=== PATIENT | male | born 1980 | race Caucasian/White ===

== ENCOUNTER 2020-02-08 12:17 | Outpatient (REF) | payer BC, SELFPAY ==
[2020-02-08 13:05] LABS: Hematocrit 48.8 % (42-52); Mean Corpuscular HGB Conc 32.8 g/dl (31.0-36.0); Mean Corpuscular Hemoglobin 28.3 pg (27.0-33.0); Mean Corpuscular Volume 86.2 fL (80-98); Mean Platelet Volume 9.8 fL (9.4-12.4); Platelet Count 278 X10*3/uL (160-400); Red Blood Count 5.66 X10*6/uL (4.60-5.80); Red Cell Distribution Width 12.7 % (11.0-16.0); White Blood Count 6.1 X10*3/uL (4.8-10.8)
[2020-02-08 13:16] LABS: Estimated Average Glucose 209 mg/dL; Hemoglobin A1c % 8.9 %
[2020-02-08 13:48] LABS: Alanine Aminotransferase 41 U/L (0-40); Albumin Level 4.5 g/dL (3.5-5.0); Alkaline Phosphatase 75 U/L (39-117); Anion Gap 14 (12-20); Aspartate Amino Transferase 19 U/L (5-37); Bilirubin Direct 0.2 mg/dL (0.0-0.5); Bilirubin Total 0.4 mg/dL (0.0-1.0); Blood Urea Nitrogen 10 mg/dL (9-16); Calcium 8.5 mg/dL (8.4-10.2); Carbon Dioxide 26 mmol/L (22-29); Chloride 104 mmol/L (96-108); Cholesterol 198 mg/dL; Estimated Glomerular Filt Rate > 60; Glucose Random 146 mg/dL (60-115); HDL Cholesterol 51 mg/dL; LDL Cholesterol Calculated 132 mg/dl; Potassium 4.5 mmol/l (3.3-5.1); Sodium 139 mmol/L (135-145); Total Protein 7.1 g/dL (6.5-8.0); Triglycerides 78 mg/dL
[2020-02-10 11:11] LABS: Appearance Urine CLOUDY; Color Urine YELLOW; Glucose Urine UA 100 MG/DL (NEG); Specific Gravity - Urine 1.025 (1.005-1.025); Urine Blood NEG (NEG)
[2020-02-10 11:12] LABS: Leukocyte Esterase Urine NEG (NEG); Nitrite Urine NEG (NEG); Urine Ketones NEG (NEG); Urine Protein NEG (NEG-TRACE)
== END 2020-02-08 12:18 | disposition home or self-care (01) ==
LOC: HO.LAB 12:17
PROVIDERS: PCP Internal Medicine; Visit Provider Internal Medicine
DX: R73.9 Hyperglycemia, unspecified (principal)
CPT/HCPCS: 36415; 80048; 80061; 80076; 81003; 82340; 82507; 82570; 83036; 83735; 83945; 83986; 84105; 84133; 84300; 84392; 84560; 85027

== ENCOUNTER 2020-05-12 09:39 | Outpatient (REF) | payer BC, SELFPAY ==
[2020-05-12 10:40] LABS: Estimated Average Glucose 128 mg/dL; Hemoglobin A1c % 6.1 %
== END 2020-05-12 09:40 | disposition home or self-care (01) ==
LOC: HO.LAB 09:39
PROVIDERS: PCP Internal Medicine; Visit Provider Internal Medicine
DX: R73.9 Hyperglycemia, unspecified (principal)
CPT/HCPCS: 36415; 83036

== ENCOUNTER 2020-05-16 09:32 | Outpatient (REF) | payer BC, SELFPAY | END 2020-05-16 09:33 | disposition home or self-care (01) | LOC: HO.WFDLDS 09:32 | PROVIDERS: PCP Internal Medicine; Visit Provider Internal Medicine | DX: Z20.822 Contact with and (suspected) exposure to COVID-19 (principal) | CPT/HCPCS: 36415; C9803; U0003; U0005 ==

== ENCOUNTER 2020-11-22 09:01 | Outpatient (REF) | payer BC, SELFPAY ==
[2020-11-22 09:24] LABS: Hematocrit 46.6 % (42-52); Hemoglobin 15.7 g/dl (14.0-18.0); Mean Corpuscular HGB Conc 33.7 g/dl (31.0-36.0); Mean Corpuscular Hemoglobin 28.9 pg (27.0-33.0); Mean Corpuscular Volume 85.8 fL (80-98); Mean Platelet Volume 9.6 fL (9.4-12.4); Platelet Count 292 X10*3/uL (160-400); Red Blood Count 5.43 X10*6/uL (4.60-5.80); Red Cell Distribution Width 13.7 % (11.0-16.0)
[2020-11-22 10:03] LABS: Alanine Aminotransferase 41 U/L (0-40); Albumin Level 4.7 g/dL (3.5-5.0); Alkaline Phosphatase 51 U/L (39-117); Anion Gap 12 (12-20); Aspartate Amino Transferase 20 U/L (5-37); Bilirubin Direct < 0.2 mg/dL (0.0-0.5); Bilirubin Total 0.3 mg/dL (0.0-1.0); Blood Urea Nitrogen 11 mg/dL (9-16); Calcium 9.3 mg/dL (8.4-10.2); Carbon Dioxide 24 mmol/L (22-29); Chloride 109 mmol/L (96-108); Cholesterol 185 mg/dL; Estimated Glomerular Filt Rate > 60; Glucose Random 117 mg/dL (60-115); HDL Cholesterol 49 mg/dL; LDL Cholesterol Calculated 126 mg/dl; Potassium 4.8 mmol/L (3.3-5.1); Sodium 140 mmol/L (135-145); Total Protein 7.2 g/dL (6.5-8.0); Triglycerides 50 mg/dL
[2020-11-22 10:14] LABS: Thyroid Stimulating Hormone 1.57 uIU/mL (0.32-4.0)
[2020-11-27 13:17] LABS: Vitamin D 25-OH, D2 <4 ng/mL; Vitamin D 25-OH, D3 28 ng/mL; Vitamin D 25-OH, Total 28 ng/mL (30-100)
== END 2020-11-22 09:02 | disposition home or self-care (01) ==
LOC: HO.LAB 09:01
PROVIDERS: PCP Internal Medicine; Visit Provider Internal Medicine
DX: E11.9 Type 2 diabetes mellitus without complications (principal); E66.01 Morbid (severe) obesity due to excess calories; I10 Essential (primary) hypertension
CPT/HCPCS: 36415; 80048; 80061; 80076; 82306; 84443; 85027

== ENCOUNTER 2021-07-05 09:06 | Outpatient (REF) | payer BC, SELFPAY ==
[2021-07-05 09:38] LABS: Hematocrit 47.2 % (42.0-52.0); Hemoglobin 15.5 g/dl (14.0-18.0); Mean Corpuscular HGB Conc 32.8 g/dl (31.0-36.0); Mean Corpuscular Hemoglobin 28.7 pg (27.0-33.0); Mean Corpuscular Volume 87.2 fL (80.0-98.0); Mean Platelet Volume 9.6 fL (9.4-12.4); Platelet Count 307 X10*3/uL (160-400); Red Blood Count 5.41 X10*6/uL (4.60-5.80); Red Cell Distribution Width 13.2 % (11.0-16.0); White Blood Count 6.2 X10*3/uL (4.8-10.8)
[2021-07-05 09:49] LABS: Appearance Urine CLEAR; Color Urine YELLOW; Glucose Urine UA NEG (NEG); Leukocyte Esterase Urine NEG (NEG); Nitrite Urine NEG (NEG); Specific Gravity - Urine 1.025 (1.005-1.025); Urine Blood NEG (NEG); Urine Ketones NEG (NEG); Urine Protein NEG (NEG-TRACE)
[2021-07-05 10:09] LABS: Creatinine Urine 192.34 mg/dL; Microalbum/Creatinine Ratio Ur 5.1 ug/mg cr
[2021-07-05 10:17] LABS: Alanine Aminotransferase 38 U/L (0-40); Albumin Level 4.7 g/dL (3.5-5.0); Alkaline Phosphatase 57 U/L (39-117); Anion Gap 12 (12-20); Aspartate Amino Transferase 19 U/L (5-37); Bilirubin Direct < 0.2 mg/dL (0.0-0.5); Bilirubin Total 0.3 mg/dL (0.0-1.0); Blood Urea Nitrogen 14 mg/dL (9-16); Calcium 9.6 mg/dL (8.4-10.2); Carbon Dioxide 27 mmol/L (22-29); Chloride 109 mmol/L (96-108); Cholesterol 200 mg/dL; Estimated Glomerular Filt Rate > 60; Glucose Random 129 mg/dL (60-115); HDL Cholesterol 46 mg/dL; LDL Cholesterol Calculated 142 mg/dl; Potassium 4.9 mmol/L (3.3-5.1); Sodium 143 mmol/L (135-145); Total Protein 7.2 g/dL (6.5-8.0); Triglycerides 60 mg/dL
[2021-07-05 10:30] LABS: Thyroid Stimulating Hormone 0.93 uIU/mL (0.32-4.0)
== END 2021-07-05 09:07 | disposition home or self-care (01) ==
LOC: HO.LAB 09:06
PROVIDERS: PCP Internal Medicine; Visit Provider Internal Medicine
DX: E11.9 Type 2 diabetes mellitus without complications (principal); E66.01 Morbid (severe) obesity due to excess calories; I10 Essential (primary) hypertension
CPT/HCPCS: 36415; 80048; 80061; 80076; 81003; 82043; 84443; 85027

== ENCOUNTER 2023-02-13 13:15 | Outpatient (AMB) | payer BC, SELFPAY ==
--- NOTE | 2023-02-13 13:21 | MHC.PC.OV ---
Vital Signs 02/13/23 13:22 Height 6 ft 2 in Weight 294 lb 6 oz BMI 37.8 BP 130/70 Blood Pressure Location Lt brachial Position Sitting Pulse 80 Pulse Source Pulse Oximeter Pulse Oximetry (%) 98 Oxygen Delivery Method Room Air Intake Visit Reasons: physical Intake Note: Patient is here today for a physical. 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: Not Required per policy Accompanied by: Self / Same As Patient Allergies No Known Allergies Allergy (Verified 02/16/23 12:26) Medication List - Last Reconciled 02/16/23 by Bassem Burroughs MD blood sugar diagnostic (Smart Education Ultra Test strips) USE TWICE A WEEK blood-glucose meter As directed enalapril maleate 10 mg PO DAILY lancets (OneTouch Delica Lancets) Test 2 times weekly metformin 500 mg PO BID Tobacco use date assessed: 02/13/23 Dental Screening Dental Screen Date: 02/13/23 Did you have a dental visit in the last 12 months?: Yes Did you have a dental problem in the last 6 months where you did not have access to dental care?: No Was dental information given to patient?: Patient has dentist HPI physical HPI Details 42 yr old male presents to the office requesting an annual physical. [facility] Medical History Essential hypertension Class 2 severe obesity with body mass index (BMI) of 35 to 39.9 with serious comorbidity Diabetes mellitus Surgical History No pertinent past surgical history Family History Father Melanoma Social History Housing: House Alcohol intake: current Alcohol intake frequency: holidays/special occasions only Patient Tobacco Use Status: Never used Tobacco e-Cigarette/Vaping Use: Never Used Second Hand Smoke Exposure: No service: No Current occupational status: employed Cognitive needs: No Hearing needs: No Vision needs: No Questionnaire PHQ-9 Over the last 2 weeks, how often have you been bothered by any of the following problems? 1. Little interest or pleasure in doing things: not at all 2. Feeling down, depressed, or hopeless: not at all 3. Trouble falling or staying asleep, or sleeping too much: not at all 4. Feeling tired or having little energy: not at all 5. Poor appetite or overeating: not at all 6. Feeling bad about yourself - or that you are a failure or have let yourself or your family down: not at all 7. Trouble concentrating on things, such as reading the newspaper or watching television: not at all 8. Moving or speaking so slowly that other people could have noticed. Or the opposite - being so fidgety or restless that you have been moving around a lot more than usual: not at all 9. Thoughts that you would be better off or of hurting yourself in some way: not at all Total score: 0 Depression Screening Interpretation: Negative Depression Screening Done: Yes Source: Developed by Drs. Marlo Adam, Pearl Rhoades, Alli Arita and colleagues, with an educational colby from [email or web address]. Thrive Questionnaire Date Thrive assessed: 08/02/22 Currently or been in a relationship where the following occur: no concerns reported MICHELLE-7 AMB Questionnaire MICHELLE-7 Date MICHELLE - 7 assessed: 08/02/22 Source: Developed by Drs. Marlo Adam, Pearl Rhoades, Alli Arita and colleagues, with an educational colby from [email or web address]. Physical exam (Primary Care) Vital Signs: Last Vital Signs Pulse 80 02/13/23 13:22 BP 130/70 02/13/23 13:22 Pulse Ox 98 02/13/23 13:22 Oxygen Delivery Method Room Air 02/13/23 13:22 Care Plan Goal for BP management: BP in BMI result Body Mass Index 37.8 BMI Assessment/Plan discussion: High (one pound per week weight loss suggested.) BMI High, discussed plan: lifestyle, weight reduction and dietary Tobacco/Smoking Status: Tobacco use Status Tobacco use date assessed 02/13/23 02/13/23 13:30 Patient Tobacco Use Status Never used Tobacco 02/13/23 13:30 e-Cigarette/Vaping Use Never Used 02/13/23 13:30 PHQ-9: PHQ-9 Score PHQ-9: Total score 0 02/13/23 13:56 Depression Screening Interpretation: Negative Thrive Assessment: Date of Thrive Assessment Date Thrive assessed 08/02/22 02/13/23 13:30 Currently or been in a relationship where the following occur: no concerns reported Advance Care Planning discussion: Exists, not on file Date of discussion: 02/13/23 Forms completed: MOLST Time spent: 1-15 minutes, not on file Const General: cooperative and healthy appearing Nutritional Appearance: well nourished Orientation/consciousness: patient oriented x3 Limitations: no limitations HENMT Head: Yes normal to inspection Eyes General: appearance normal, both eyes and all related structures Neck Neck: Yes normal visual inspection Chest Chest palpation & inspection: normal palpation of entire chest wall Resp Effort & Inspection: normal respiratory effort Neuro General: patient oriented x3 Results AMB Hemoglobin A1c AMB Hemoglobin A1c 7.9 % Last Edit by SURESH Esteves on 02/13/23 13:57 Results Reviewed Results Reviewed: Laboratory Last Values Hgb A1c (Clinic) 7.9 % (4.0-6.0) H 02/13/23 13:20 Assessment and Plan Assessment & Plan (1) Diabetes mellitus: Code(s): E11.9 - Type 2 diabetes mellitus without complications Plan: A1c is getting worse. Patient was advised and needs modifications on his medications. (2) Class 2 severe obesity with body mass index (BMI) of 35 to 39.9 with serious comorbidity: Code(s): E66.01 - Morbid (severe) obesity due to excess calories Plan: Counselling on the importance of diet and exercise suggested. (3) Essential hypertension: Code(s): I10 - Essential (primary) hypertension Plan: BP in range. Continue current medications. (4) Annual physical exam: Code(s): Z00.00 - Encounter for general adult medical examination without abnormal findings Plan Upto date on all his screening procedures. Orders: Orders AMB Hemoglobin A1c 02/13/23 E11.9 - Type 2 diabetes mellitus without complications Coding Level of Care Code Est Pt Prev Care 40-64y(16149) Diagnoses Diabetes mellitus E11.9 Class 2 severe obesity with body mass index (BMI) of 35 to 39.9 with serious comorbidity E66.01 Essential hypertension I10 Annual physical exam Z00.00 Additional Codes Vital Signs *Quality* - Advance Care Planning discussion: Exists, not on file ([id number]) Vital Signs *Quality* - Time spent: 1-15 minutes, not on file ([id number])
[2023-02-13 13:22] VITALS: BP 130/70; PULSE 80; O2SAT 98; BMI 37.8
== END 2023-02-13 13:42 | disposition home or self-care (01) ==
PROVIDERS: Visit Provider Internal Medicine
DX: E11.9 Type 2 diabetes mellitus without complications (principal)
CPT/HCPCS: 1124F; 83036; 99396

== ENCOUNTER 2023-02-13 13:48 | Outpatient (REF) | payer BC, SELFPAY | END 2023-02-13 13:49 | disposition home or self-care (01) | LOC: HO.LAB 13:48 | PROVIDERS: PCP Internal Medicine; Visit Provider Internal Medicine | DX: Z13.89 Encounter for screening for other disorder (principal) ==

== ENCOUNTER 2024-02-19 08:07 | Outpatient (AMB) | payer BC, SELFPAY ==
--- NOTE | 2024-02-19 08:13 | MHC.PC.OV ---
Vital Signs 02/19/24 08:14 Height 6 ft 2 in Weight 287 lb 8 oz BMI 36.9 BP 132/66 Blood Pressure Location Lt brachial Position Sitting Pulse 71 Pulse Source Pulse Oximeter Pulse Oximetry (%) 96 Oxygen Delivery Method Room Air Intake Visit Reasons: pe Intake Note: Patient is here today for a physical. 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 In addition patient wants to discuss his diabetes. He has been checking his blood sugars only in the morning and fasting blood sugars have been consistently less than 150. Not following any particular diet or exercise. Patient is requesting a foster physical form to be filled. Able to function and do all activities of daily living. [facility], [facility] Medical History Essential hypertension Class 2 severe obesity with body mass index (BMI) of 35 to 39.9 with serious comorbidity Diabetes mellitus Surgical History No pertinent past surgical history Family History Father Melanoma Social History Housing: House Alcohol intake: current Alcohol intake frequency: holidays/special occasions only Patient Tobacco Use Status: Never used Tobacco e-Cigarette/Vaping Use: Never Used Second Hand Smoke Exposure: No service: No Current occupational status: employed Cognitive needs: No Hearing needs: No Vision needs: No Questionnaire PHQ-9 Over the last 2 weeks, how often have you been bothered by any of the following problems? 1. Little interest or pleasure in doing things: not at all 2. Feeling down, depressed, or hopeless: not at all 3. Trouble falling or staying asleep, or sleeping too much: not at all 4. Feeling tired or having little energy: not at all 5. Poor appetite or overeating: not at all 6. Feeling bad about yourself - or that you are a failure or have let yourself or your family down: not at all 7. Trouble concentrating on things, such as reading the newspaper or watching television: not at all 8. Moving or speaking so slowly that other people could have noticed. Or the opposite - being so fidgety or restless that you have been moving around a lot more than usual: not at all 9. Thoughts that you would be better off or of hurting yourself in some way: not at all Total score: 0 Depression Screening Interpretation: Negative Depression Screening Done: Yes Source: Developed by Drs. Marlo Adam, Pearl Rhoades, Alli Arita and colleagues, with an educational colby from [employer]. Thrive Questionnaire Date Thrive assessed: 02/19/24 I am a: Patient What is your living situation today?: I have a steady place to live Within the past 12 months, did the food you bought not last and you didn't have the money to get more?: Never true Within the past 12 months, did you worry whether your food would run out before you got money to buy more?: Never true Do you have trouble paying for medicines?: No Do you have trouble getting transportation to medical appointments?: No Do you have trouble paying your heating and electricity bill?: No Do you have trouble taking care of your child, family member or friend?: No Do you have trouble with day-to-day activities such as bathing, preparing meals, shopping, managing finances, etc.?: No Are you currently unemployed and looking for a job?: No Are you interested in more education?: No Please select the resources that you would like help with: None Currently or been in a relationship where the following occur: No concerns reported THRIVE Score: 0 AUDIT C Alcohol Use Questionnaire (AUDIT-C) 1. How often do you have a drink containing alcohol?: Never Total Score: 0 MICHELLE-7 AMB Questionnaire MICHELLE-7 Date MICHELLE - 7 assessed: 02/19/24 Feeling nervous, anxious, or on edge: 0 = Not at all Not being able to stop or control worryin = Not at all Worrying too much about different things: 0 = Not at all Trouble relaxin = Not at all Being so restless that it is hard to sit still: 0 = Not at all Becoming easily annoyed or irritable: 0 = Not at all Feeling afraid as if something awful might happen: 0 = Not at all Total MICHELLE-7 score (0-4 normal; 5-9 mild; 10-14 moderate; 15-21 severe): 0 Source: Developed by Drs. Marlo Adam, Pearl Rhoades, Alli Arita and colleagues, with an educational colby from [employer]. Physical exam (Primary Care) Vital Signs: Last Vital Signs Pulse 71 02/19/24 08:14 BP 132/66 02/19/24 08:14 Pulse Ox 96 02/19/24 08:14 Oxygen Delivery Method Room Air 02/19/24 08:14 BMI result Body Mass Index 36.9 Tobacco/Smoking Status: Tobacco use Status Tobacco use date assessed 02/19/24 02/19/24 08:21 Patient Tobacco Use Status Never used Tobacco 02/19/24 08:21 e-Cigarette/Vaping Use Never Used 02/19/24 08:21 PHQ-9: PHQ-9 Score PHQ-9: Total score 0 02/19/24 08:23 Depression Screening Interpretation: Negative Thrive Assessment: Date of Thrive Assessment Date Thrive assessed 02/19/24 02/19/24 08:21 Currently or been in a relationship where the following occur: No concerns reported Const General: cooperative and healthy appearing Nutritional Appearance: well nourished Orientation/consciousness: patient oriented x3 Limitations: no limitations HENMT Head: Yes normal to inspection Eyes General: appearance normal, both eyes and all related structures Neck Neck: Yes normal visual inspection Chest Chest palpation & inspection: normal palpation of entire chest wall Resp Effort & Inspection: normal respiratory effort Neuro General: patient oriented x3 Results AMB Hemoglobin A1c AMB Hemoglobin A1c 9.1 % Last Edit by SURESH Esteves on 02/19/24 08:24 Results Reviewed Results Reviewed: Laboratory Last Values Hgb A1c (Clinic) 9.1 % (4.0-6.0) H 02/19/24 08:13 Coding Level of Care Code Est Pt Level 4 (11756) Est Pt Prev Care 40-64y(42502) Diagnoses Diabetes mellitus E11.9 Class 2 severe obesity with body mass index (BMI) of 35 to 39.9 with serious comorbidity E66.01 Essential hypertension I10 Annual physical exam Z00.00 Assessment & Plan Assessment & Plan (1) Diabetes mellitus: Code(s): E11.9 - Type 2 diabetes mellitus without complications Category: Medical Plan: Patient's A1c is 9.1. This reflects extremely poor control on the blood sugar. Counseling done on the dangers of elevated blood sugars and subsequent consequences. Trulicity has been added to the regimen. Metformin has been increased to 1 g twice a day. Statins have been added to the regimen. Patient was advised to check blood sugars 2 hours after a meal. He was advised to exercise regularly. (2) Class 2 severe obesity with body mass index (BMI) of 35 to 39.9 with serious comorbidity: Code(s): E66.01 - Morbid (severe) obesity due to excess calories Category: Medical Plan: Counseling on the importance of diet and exercise done. (3) Essential hypertension: Code(s): I10 - Essential (primary) hypertension Category: Medical Plan: Blood pressure is in range. Continue lisinopril at the same dosage. (4) Annual physical exam: Code(s): Z00.00 - Encounter for general adult medical examination without abnormal findings Plan: Current with his flu vaccine. Patient needed forms filled for foster care. These were completed. Orders: Orders AMB Hemoglobin A1c Today E11.9 - Type 2 diabetes mellitus without complications Basic Metabolic Panel Today E11.9 - Type 2 diabetes mellitus without complications, E66.01 - Morbid (severe) obesity due to excess calories, I10 - Essential (primary) hypertension Liver Panel Today E11.9 - Type 2 diabetes mellitus without complications, E66.01 - Morbid (severe) obesity due to excess calories, I10 - Essential (primary) hypertension Microalbumin, Random (w Creat) Today E11.9 - Type 2 diabetes mellitus without complications, E66.01 - Morbid (severe) obesity due to excess calories, I10 - Essential (primary) hypertension UA and rflx microscopic Today E11.9 - Type 2 diabetes mellitus without complications, E66.01 - Morbid (severe) obesity due to excess calories, I10 - Essential (primary) hypertension Complete Blood Count no Diff Today E11.9 - Type 2 diabetes mellitus without complications, E66.01 - Morbid (severe) obesity due to excess calories, I10 - Essential (primary) hypertension Lipid Panel Today E11.9 - Type 2 diabetes mellitus without complications, E66.01 - Morbid (severe) obesity due to excess calories, I10 - Essential (primary) hypertension Thyroid Stimulating Hormone Today E11.9 - Type 2 diabetes mellitus without complications, E66.01 - Morbid (severe) obesity due to excess calories, I10 - Essential (primary) hypertension Medications: New dulaglutide (Trulicity) 1.5 mg (0.5 mL) subcut QWEEK 2 mL 1RF simvastatin 10 mg PO BEDTIME 90 tabs 1RF metformin 1,000 mg PO BID 180 tabs 1RF Discontinued metformin Discontinued Reason: Doctor's Order 500 mg PO BID 180 tabs 1RF
[2024-02-19 08:14] VITALS: BP 132/66; PULSE 71; O2SAT 96; BMI 36.9
== END 2024-02-19 08:39 | disposition home or self-care (01) ==
PROVIDERS: PCP Internal Medicine; Visit Provider Internal Medicine
DX: Z00.00 Encounter for general adult medical examination without abnormal findings (principal); E11.9 Type 2 diabetes mellitus without complications; E66.01 Morbid (severe) obesity due to excess calories; Z68.36 Body mass index [BMI] 36.0-36.9, adult; I10 Essential (primary) hypertension

== ENCOUNTER → 2024-02-19 08:07 | Outpatient (BNVA) | payer BC, SELFPAY | PROVIDERS: PCP Internal Medicine; Visit Provider Internal Medicine | DX: Z00.00 Encounter for general adult medical examination without abnormal findings (principal); E11.9 Type 2 diabetes mellitus without complications; E66.01 Morbid (severe) obesity due to excess calories; Z68.36 Body mass index [BMI] 36.0-36.9, adult; I10 Essential (primary) hypertension; Z79.899 Other long term (current) drug therapy | CPT/HCPCS: 83036; 96127 ==

== ENCOUNTER 2024-05-20 15:49 | Outpatient (AMB) | payer BC, SELFPAY ==
--- NOTE | 2024-05-20 15:54 | MHC.PC.OV ---
Vital Signs 05/20/24 16:04 Height 6 ft 2 in Weight 274 lb 2 oz BMI 35.2 BP 132/82 Blood Pressure Location Lt brachial Position Sitting Pulse 85 Pulse Source Pulse Oximeter Temp 97.3 F Temp Source Skin Pulse Oximetry (%) 94 Oxygen Delivery Method Room Air Intake Visit Reasons: 6 mo follow up Intake Note: Patient is here to follow up on DM, HTN, Obesity. Implementation Manager Required: No Loss Prevention Consultant: Not Required per policy Accompanied by: Self / Same As Patient Allergies No Known Allergies Allergy (Verified 05/20/24 17:22) Medication List - Last Reconciled 05/20/24 by Jennifer Bond PA-C blood sugar diagnostic ([employer] Ultra Test strips) USE TWICE A WEEK blood-glucose meter As directed dulaglutide (Trulicity) 1.5 mg (0.5 mL) subcut QWEEK enalapril maleate 10 mg PO DAILY lancets (OneTouch Delica Lancets) Test 2 times weekly metformin 1,000 mg PO BID simvastatin 10 mg PO BEDTIME Tobacco use date assessed: 05/20/24 Dental Screening Dental Screen Date: 05/20/24 Did you have a dental visit in the last 12 months?: No Did you have a dental problem in the last 6 months where you did not have access to dental care?: No Was dental information given to patient?: No PFSH Medical History Essential hypertension Class 2 severe obesity with body mass index (BMI) of 35 to 39.9 with serious comorbidity Diabetes mellitus Surgical History No pertinent past surgical history Family History Father Melanoma Social History Housing: House Alcohol intake: current Alcohol intake frequency: holidays/special occasions only Patient Tobacco Use Status: Never used Tobacco e-Cigarette/Vaping Use: Never Used Second Hand Smoke Exposure: No service: No Current occupational status: employed Cognitive needs: No Hearing needs: No Vision needs: No Questionnaire PHQ-9 Over the last 2 weeks, how often have you been bothered by any of the following problems? 1. Little interest or pleasure in doing things: not at all 2. Feeling down, depressed, or hopeless: not at all 3. Trouble falling or staying asleep, or sleeping too much: not at all 4. Feeling tired or having little energy: not at all 5. Poor appetite or overeating: not at all 6. Feeling bad about yourself - or that you are a failure or have let yourself or your family down: not at all 7. Trouble concentrating on things, such as reading the newspaper or watching television: not at all 8. Moving or speaking so slowly that other people could have noticed. Or the opposite - being so fidgety or restless that you have been moving around a lot more than usual: not at all 9. Thoughts that you would be better off or of hurting yourself in some way: not at all Total score: 0 Depression Screening Interpretation: Negative Depression Screening Done: Yes [id number] - PHQ-9 Billing: Yes Source: Developed by Drs. Marlo Adam, Pearl Rhoades, Alli Arita and colleagues, with an educational colby from [employer]. Thrive Questionnaire Date Thrive assessed: 05/20/24 I am a: Patient What is your living situation today?: I have a steady place to live Within the past 12 months, did the food you bought not last and you didn't have the money to get more?: Never true Within the past 12 months, did you worry whether your food would run out before you got money to buy more?: Never true Do you have trouble paying for medicines?: No Do you have trouble getting transportation to medical appointments?: No Do you have trouble paying your heating and electricity bill?: No Do you have trouble taking care of your child, family member or friend?: No Do you have trouble with day-to-day activities such as bathing, preparing meals, shopping, managing finances, etc.?: No Are you currently unemployed and looking for a job?: No Are you interested in more education?: No Please select the resources that you would like help with: None Currently or been in a relationship where the following occur: No concerns reported THRIVE Score: 0 AUDIT C Alcohol Use Questionnaire (AUDIT-C) 1. How often do you have a drink containing alcohol?: Never Total Score: 0 Score Reviewed/Action Taken: Yes MICHELLE-7 AMB Questionnaire MICHELLE-7 Date MICHELLE - 7 assessed: 05/20/24 Feeling nervous, anxious, or on edge: 0 = Not at all Not being able to stop or control worryin = Not at all Worrying too much about different things: 0 = Not at all Trouble relaxin = Not at all Being so restless that it is hard to sit still: 0 = Not at all Becoming easily annoyed or irritable: 0 = Not at all Feeling afraid as if something awful might happen: 0 = Not at all Total MICHELLE-7 score (0-4 normal; 5-9 mild; 10-14 moderate; 15-21 severe): 0 Source: Developed by Drs. Marlo Adam, Pearl Rhoades, Alli Arita and colleagues, with an educational cloby from [employer]. MICHELLE-7 Assessment Billing MICHELLE-7 Assessment Tool: MICHELLE-7 Assessment 12100 Physical exam (Primary Care) Vital Signs: Last Vital Signs Temp 97.3 F 05/20/24 16:04 Pulse 85 05/20/24 16:04 BP 132/82 05/20/24 16:04 Pulse Ox 94 05/20/24 16:04 Oxygen Delivery Method Room Air 05/20/24 16:04 BMI result Body Mass Index 35.2 Tobacco/Smoking Status: Tobacco use Status Tobacco use date assessed 05/20/24 05/20/24 16:14 Patient Tobacco Use Status Never used Tobacco 05/20/24 15:55 e-Cigarette/Vaping Use Never Used 05/20/24 15:55 PHQ-9: PHQ-9 Score PHQ-9: Total score 0 05/20/24 16:03 Depression Screening Interpretation: Negative Thrive Assessment: Date of Thrive Assessment Date Thrive assessed 05/20/24 05/20/24 16:03 Currently or been in a relationship where the following occur: No concerns reported Results AMB Hemoglobin A1c AMB Hemoglobin A1c 6.3 % Last Edit by SURESH Esteves on 05/20/24 16:16 Results Reviewed Results Reviewed: Laboratory Last Values Hgb A1c (Clinic) 6.3 % (4.0-6.0) H 05/20/24 16:04 Coding Level of Care Code Est Pt Level 4 (00911) Complex EM visit Add On G2211 Diagnoses Essential hypertension I10 Class 2 severe obesity with body mass index (BMI) of 35 to 39.9 with serious comorbidity E66.01 Diabetes mellitus E11.9 Additional Codes PHQ-9 - 57532 - PHQ-9 Billing: Yes ([id number]) MICHELLE-7 Assessment Billing - MICHELLE-7 Assessment Tool: MICHELLE-7 Assessment 33008 ([id number]) Assessment & Plan Assessment & Plan (1) Essential hypertension: Code(s): I10 - Essential (primary) hypertension Category: Medical Plan: Continue Enalapril 10 mg daily. Condition is chronic and stable continue to monitor. (2) Class 2 severe obesity with body mass index (BMI) of 35 to 39.9 with serious comorbidity: Code(s): E66.01 - Morbid (severe) obesity due to excess calories Category: Medical Plan: Patient improving his diet and exercising. Attempting to lose weight. Condition is chronic and stable continue to monitor. (3) Diabetes mellitus: Code(s): E11.9 - Type 2 diabetes mellitus without complications Category: Medical Plan: Patient's A1c level went from 9.0 and February to 6.3 today. Patient is currently on Trulicity subQ weekly and metformin 1000 mg p.o. b.i.d. along with simvastatin 10 mg and enalapril 10 mg daily. Blood pressure at goal today. Condition is chronic and stable continue to monitor. Plan Plan - Continue Trulicity to manage Type 2 Diabetes Mellitus given effective glucose control. - Maintain simvastatin therapy for hyperlipidemia, target LDL cholesterol <70 mg/dL. - enalapril to continue for renal protection in the context of nephrolithiasis. - Encourage continued weight loss efforts, dietary modification to manage obesity, and adherence to diabetes and lipid management plan. - Schedule repeat blood work prior to next follow-up visit in February. - Reinforce medication adherence and adjust as needed based on laboratory results and glucose monitoring. Orders: Orders AMB Hemoglobin A1c Today E11.9 - Type 2 diabetes mellitus without complications Medications: Refilled dulaglutide (Trulicity) 1.5 mg (0.5 mL) subcut QWEEK 2 mL 3RF metformin 1,000 mg PO BID 180 tabs 1RF simvastatin 10 mg PO BEDTIME 90 tabs 1RF enalapril maleate 10 mg PO DAILY 90 tabs 1RF Patient Instructions: Patient Instructions - Continue taking Trulicity, simvastatin, and enalapril as prescribed. - Follow a balanced diet rich in fruits and vegetables, while avoiding high-fat and high-LDL foods. - Complete fasting blood work as directed before the next appointment in February. - Maintain regular physical activity to support ongoing weight loss efforts. - Monitor blood sugar levels as instructed, especially when fasting. - Return for follow-up in February for continued management of diabetes and hyperlipidemia. - Seek medical attention if experiencing symptoms of high blood sugar, such as excessive thirst or confusion. Scribe Plan - Not visible on output: History of Present Illness The patient is a 43-year-old male presenting with a follow-up for Type 2 Diabetes Mellitus, obesity, hyperlipidemia, and essential hypertension. The patient was diagnosed with Type 2 Diabetes Mellitus and initiated on Trulicity, which has significantly improved his hemoglobin A1c from 9.1% in February to 6.3% currently. He reports no adherence to the medication for the past week and a half due to discussions regarding continued usage. The patient has a familial history of diabetes on the paternal side. The patient is prescribed simvastatin for managing his elevated low-density lipoprotein cholesterol, which was 142 mg/dL, notably above the target goal of <70 mg/dL for diabetics. Hyperlipidemia management was initiated recently, concurrent with diabetes management. Despite his diagnosis of essential hypertension, the patient maintains that he has not experienced any hypertension-related issues and takes anapril for renal protection due to nephrolithiasis. His weight has decreased from 287 to 274 pounds, indicating some improvement in obesity management. He engages in lifestyle modifications, including dietary changes, to assist with managing his conditions. 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 - Family status: with plans to adopt a preemie, fostering a as the biological mother seeks rehabilitation. - Diet and exercise: Has been avoiding greasy, fatty foods and increasing intake of fruits and vegetables. Reports a decrease in weight. - Substance use: Not discussed. Review of Systems - Constitutional: Denies dizziness, black spots. - Gastrointestinal: Reports no symptoms. - Cardiovascular: Reports no chest pain or palpitations. - Endocrine: Denies excessive thirst. - Neurological: Reports no confusion or syncope. Physical Exam Appearance: Alert. Oriented X3. No acute distress. Head: Normal external exam. Normocephalic. Atraumatic. Eyes: Pupils are equal, round, and reactive to light. Extraocular movements intact. Conjunctiva and sclera normal. Eyelids normal. Throat: Moist mucous membranes. Neck: Normal inspection. Neck supple. Full range of motion. Cardiovascular: Normal heart rate and rhythm. Heart sound normal. No murmurs noted. Pulses normal throughout. Respiratory: No respiratory distress. Painless inspiration. Breath sounds normal. No wheezes/rales/rhonchi noted. Chest nontender. No accessory muscle usage noted or decreased air movement noted. Abdomen: Soft and nontender. Back: Full range of motion noted. Skin: Skin warm and dry. Normal skin color. Normal skin turgor. No rashes/lesions/lacerations noted. Extremities: Extremities exhibit normal range of motion. Extremities nontender. Neuro: Oriented X 3. No motor deficit. No sensory deficit. Reflexes normal. Results - Labs: Hemoglobin A1c 6.3%, LDL cholesterol 142 mg/dL, HDL cholesterol level of 46 mg/dL (last tested 2021). Plan - Continue Trulicity to manage Type 2 Diabetes Mellitus given effective glucose control. - Maintain simvastatin therapy for hyperlipidemia, target LDL cholesterol <70 mg/dL. - enalapril to continue for renal protection in the context of nephrolithiasis. - Encourage continued weight loss efforts, dietary modification to manage obesity, and adherence to diabetes and lipid management plan. - Schedule repeat blood work prior to next follow-up visit in February. - Reinforce medication adherence and adjust as needed based on laboratory results and glucose monitoring. Patient was informed and verbally consented to the use of an ambient scribe for clinic note documentation during this visit. Discussion Notes I discussed with the patient the importance of continuing Trulicity due to its effectiveness in achieving and maintaining target A1c levels. We reviewed the need for managing hyperlipidemia with simvastatin, focusing on the goal LDL cholesterol level for diabetics. The patient was advised to maintain the enalapril regimen for kidney protection given his history of nephrolithiasis. We also discussed lifestyle modifications, emphasizing the role of diet in managing obesity. Emphasized the necessity for lab work prior to the next appointment. We touched upon weight loss, dietary advice, and follow-up for continued health maintenance and discussed the social impacts of current foster care and employment. Patient Instructions - Continue taking Trulicity, simvastatin, and enalapril as prescribed. - Follow a balanced diet rich in fruits and vegetables, while avoiding high-fat and high-LDL foods. - Complete fasting blood work as directed before the next appointment in February. - Maintain regular physical activity to support ongoing weight loss efforts. - Monitor blood sugar levels as instructed, especially when fasting. - Return for follow-up in February for continued management of diabetes and hyperlipidemia. - Seek medical attention if experiencing symptoms of high blood sugar, such as excessive thirst or confusion.
[2024-05-20 16:04] VITALS: BP 132/82; PULSE 85; TEMP 36.3; O2SAT 94; BMI 35.2
== END 2024-05-20 16:35 | disposition home or self-care (01) ==
LOC: HO.HMCH 15:49
PROVIDERS: PCP Internal Medicine; Visit Provider Physician Assistant Medical
DX: E11.9 Type 2 diabetes mellitus without complications (principal)

== ENCOUNTER → 2024-05-20 15:49 | Outpatient (BNVA) | payer BC, SELFPAY | PROVIDERS: PCP Internal Medicine; Visit Provider Physician Assistant Medical | DX: E11.9 Type 2 diabetes mellitus without complications (principal); I10 Essential (primary) hypertension; E66.01 Morbid (severe) obesity due to excess calories; Z68.35 Body mass index [BMI] 35.0-35.9, adult; Z79.84 Long term (current) use of oral hypoglycemic drugs; Z79.899 Other long term (current) drug therapy | CPT/HCPCS: 83036; 96127 ==

== ENCOUNTER 2025-02-24 15:03 | Outpatient (AMB) | payer BC, SELFPAY ==
--- NOTE | 2025-02-24 15:25 | A.OFFPC_ITS ---
Vital Signs 02/24/25 15:29 Height 6 ft 2 in Weight 269 lb 2 oz BMI 34.5 BP 142/76 H Blood Pressure Location Lt brachial Position Sitting Pulse 96 Pulse Source Pulse Oximeter Temp 97.7 F Temp Source Temporal Artery Scan Pulse Oximetry (%) 97 Oxygen Delivery Method Room Air Intake Visit Reasons: annual exam - see comments Intake Note: Patient is here today for a physical. Director Of Revenue Cycle Management Required: No Manager Care Management: Not Required per policy Accompanied by: Self / Same As Patient Allergies No Known Allergies Allergy (Verified 02/24/25 15:28) Tobacco use date assessed: 02/24/25 Dental Screening Dental Screen Date: 05/20/24 HPI HPI Comments History of Present Illness Details History of Present Illness - The patient is a 44 year old individua l presenting for an annual physical examination. - The patient has no specific health con cerns at this time. - The patient's history is significant f or diabetes mellitus, for which the patient takes Trulicity once a week and metformin twice a day, along with enalapril. - The patient reports that blood sugar l evels have been terrible lately and has not had blood work done in quite a while. - Regarding lifestyle, the patient repor ts that diet and exercise have been suboptimal. - Activity levels have decreased, becomi ng more sedentary since the patient and the patient's became foster parents to a in May, which limited usual summer activities like hiking and camping. - In terms of preventative health, the p atient is up to date on the flu shot and COVID boosters. - The patient is due for a diabetic eye exam and colon cancer screening, and denies any family history of colon cancer. Social History - The patient lives with the patient's w casandra and they are caring for a foster child who was a as of May. - The patient's diet and exercise are de scribed as not great. - The patient reports a more sedentary l ifestyle since caring for the infant, with a reduction in activities such as hiking and camping. Results No new diagnostic results were reviewed during the visit. [facility] Medical History Essential hypertension Class 2 severe obesity with body mass index (BMI) of 35 to 39.9 with serious comorbidity Diabetes mellitus Surgical History No pertinent past surgical history Family History Father Melanoma Social History Housing: House Alcohol intake: current Alcohol intake frequency: holidays/special occasions only Patient Tobacco Use Status: Never used Tobacco e-Cigarette/Vaping Use: Never Used Second Hand Smoke Exposure: No service: No Current occupational status: employed Cognitive needs: No Hearing needs: No Vision needs: No Questionnaire PHQ-9 Over the last 2 weeks, how often have you been bothered by any of the following problems? 1. Little interest or pleasure in doing things: not at all 2. Feeling down, depressed, or hopeless: not at all 3. Trouble falling or staying asleep, or sleeping too much: not at all 4. Feeling tired or having little energy: not at all 5. Poor appetite or overeating: not at all 6. Feeling bad about yourself - or that you are a failure or have let yourself or your family down: not at all 7. Trouble concentrating on things, such as reading the newspaper or watching television: not at all 8. Moving or speaking so slowly that other people could have noticed. Or the opposite - being so fidgety or restless that you have been moving around a lot more than usual: not at all 9. Thoughts that you would be better off or of hurting yourself in some way: not at all Total score: 0 Source: Developed by Drs. Marlo Adam, Pearl Rhoades, Alli Arita and colleagues, with an educational colby from [employer]. Thrive Questionnaire Date Thrive assessed: 02/22/25 I am a: Patient What is your living situation today?: I have a steady place to live Within the past 12 months, did the food you bought not last and you didn't have the money to get more?: Never true Within the past 12 months, did you worry whether your food would run out before you got money to buy more?: Never true Do you have trouble paying for medicines?: No Do you have trouble getting transportation to medical appointments?: No Do you have trouble paying your heating and electricity bill?: No Do you have trouble taking care of your child, family member or friend?: No Do you have trouble with day-to-day activities such as bathing, preparing meals, shopping, managing finances, etc.?: No Are you currently unemployed and looking for a job?: No Are you interested in more education?: No Please select the resources that you would like help with: None Currently or been in a relationship where the following occur: No concerns reported THRIVE Score: 0 AUDIT C Alcohol Use Questionnaire (AUDIT-C) 1. How often do you have a drink containing alcohol?: Never 3. How often do you have six or more drinks on one occasion?: Never Total Score: 0 MICHELLE-7 AMB Questionnaire MICHELLE-7 Date MICHELLE - 7 assessed: 05/20/24 Feeling nervous, anxious, or on edge: 0 = Not at all Not being able to stop or control worryin = Not at all Worrying too much about different things: 0 = Not at all Trouble relaxin = Not at all Being so restless that it is hard to sit still: 0 = Not at all Becoming easily annoyed or irritable: 0 = Not at all Feeling afraid as if something awful might happen: 0 = Not at all Total MICHELLE-7 score (0-4 normal; 5-9 mild; 10-14 moderate; 15-21 severe): 0 Source: Developed by Drs. Marlo Adam, Pearl Rhoades, Alli Arita and colleagues, with an educational colby from [employer]. Review of Systems Narrative Review of Systems - General: Denies specific concerns and reports being in good health. - Endocrine: Reports poor blood glucose control recently. Physical exam (Primary Care) Vital Signs: Last Vital Signs Temp 97.7 F 02/24/25 15:29 Pulse 96 02/24/25 15:29 BP 142/76 H 02/24/25 15:29 Pulse Ox 97 02/24/25 15:29 Oxygen Delivery Method Room Air 02/24/25 15:29 BMI result Body Mass Index 34.5 Tobacco/Smoking Status: Tobacco use Status Tobacco use date assessed 02/24/25 02/24/25 15:42 Patient Tobacco Use Status Never used Tobacco 11/20/25 15:25 e-Cigarette/Vaping Use Never Used 02/24/25 15:25 PHQ-9: PHQ-9 Score PHQ-9: Total score 0 02/24/25 15:25 Thrive Assessment: Date of Thrive Assessment Date Thrive assessed 02/22/25 02/24/25 15:25 Currently or been in a relationship where the following occur: No concerns reported Narrative Physical Exam General: Cooperative and healthy appearing Nutritional Appearance: Well nourished Orientation/consciousness: Patient oriented x3 Limitations: No limitations Head: Normal to inspection General: Appearance normal, both eyes and all related structures Neck: Normal visual inspection Chest: Normal palpation of entire chest wall Respiratory: Normal respiratory effort Neurology: Patient oriented x3 Results AMB Hemoglobin A1c AMB Hemoglobin A1c 5.8 % Last Edit by SURESH Esteves on 02/24/25 15:45 Results Reviewed Results Reviewed: Laboratory Last Values Hgb A1c (Clinic) 5.8 % (4.0-6.0) 02/24/25 15:26 Coding Level of Care Code Est Pt Prev Care 40-64y(92450) Diagnoses Essential hypertension I10 Annual physical exam Z00.00 Assessment & Plan Assessment & Plan (1) Essential hypertension: Code(s): I10 - Essential (primary) hypertension Category: Medical Plan: as above (2) Annual physical exam: Code(s): Z00.00 - Encounter for general adult medical examination without abnormal findings Plan Plan - Ordered fasting blood work to evaluate diabetes control. - Ordered a Cologuard test for routine colon cancer screening. - Will refer for a colonoscopy if the Cologuard test is positive. - Recommended a formal eye exam for diabetic retinopathy screening. - The patient will continue current medications including Trulicity, metformin, and enalapril, with no new refills needed at this time. - Counseled the patient on the need to improve diet and exercise. Discussion Notes I advised the patient that we will be ordering blood work to monitor the patient's diabetes and instructed a fasting state for the test. We discussed colon cancer screening options, as the patient is now 44 years old. I recommended the Cologuard test, explained the process, and noted that a positive result would require a follow-up colonoscopy. I also emphasized the importance of a dedicated diabetic eye exam, which is different from the vision screening the patient undergoes for other purposes. We confirmed the patient is up to date with flu and COVID-19 immunizations and has adequate refills for current medications. Patient Instructions - Please go for blood work. - Do not eat or drink anything after midnight the night before your blood test. - A Cologuard kit for colon cancer screening will be sent to your home. - Please schedule an eye exam to screen for issues related to diabetes. - Continue taking your current medications as prescribed. Orders: Orders AMB Hemoglobin A1c 02/24/25 E11.9 - Type 2 diabetes mellitus without complications Complete Blood Count no Diff 02/24/25 I10 - Essential (primary) hypertension Lipid Panel 02/24/25 I10 - Essential (primary) hypertension Thyroid Stimulating Hormone 02/24/25 I10 - Essential (primary) hypertension UA and rflx microscopic 02/24/25 I10 - Essential (primary) hypertension Basic Metabolic Panel 02/24/25 I10 - Essential (primary) hypertension Liver Panel 02/24/25 I10 - Essential (primary) hypertension Microalbumin, Random (w Creat) 02/24/25 I10 - Essential (primary) hypertension Referrals Cologuard Test Z12.11 - Encounter for screening for malignant neoplasm of colon
[2025-02-24 15:29] VITALS: BP 142/76; PULSE 96; TEMP 36.5; O2SAT 97; BMI 34.5
--- OUTSIDE RECORDS SUMMARY | 2025-02-24 20:27 | XMS_ITS | Data Portability ---
Author Organization [facility] Abram mike, [facility] Address [address] [place] [address] [place] [address] Assessment No assessment recorded. Plan of Treatment Reminders Order Date Submit Date Provider Last Modified By Organization Details Last Modified Time Details Appointments None recorded. Lab None recorded. Referral None recorded. Procedures None recorded. Surgeries None recorded. Imaging XR, toe(s) 2019 020 [email or web address] [id number] [facility], [address], [address], [place], [address], 0 13:46:13 Medication Orders prednisone 10 mg tablets in a dose pack 2019 020 INTERFACE [id number], [address] [place] [address], [id number], 0 13:21:36 cephalexin 500 mg capsule 2019 020 INTERFACE [id number], [address] [place], [place], [id number], 0 13:21:18 Patient TargetsNo targets recorded. Patient Instructions Encounter Date Encounter Id Patient Instructions Last Modified By Organization Details Last Modified Time 10/08/2019 [id number] gout: care instructions ihelms Not available 10/08/2019 13:21:14 purine-restricte d diet: care instructions ihelms Not available 10/08/2019 13:21:14 A healthy lifestyle: care instructions ihelms Not available 10/08/2019 13:19:43 body mass index: care instructions ihelms Not available 10/08/2019 13:19:43 learning about healthy weight ihelms Not available 10/08/2019 13:19:43 Osmar, you appea r to have two separate issues - an early infection around the nail of your left great toe and likely gout in the joint at the base of the toe. I have prescribed an antibiotic for a possible infection around your right great toenail which you should start today and take until end of course. To prevent future infections, try letting your nail grow out a bit longer - cutting the nail too short can make you more susceptible to infection. I have also prescribed a course of prednisone to help with your probable gout. HEALTHY LIFESTYLE RECOMMENDATIONS - BMI (Body Mass Index) We at [facility] want to help you be as healthy as possible. As part of your health evaluation we routinely measure your weight and calculate a measurement called BMI. While we did not see you today for a weight issue, we are still interested in helping you be as healthy as possible. BMI stands for Body Mass Index. It is based on the relationship between your weight and height. It is an indirect measurement of body fat and is used as a screening tool to identify whether or not a person s weight is normal. WHY DO WE CALCULATE YOUR BMI? Having a normal BMI puts you at a lower risk for medical problems such as heart disease, high blood pressure and diabetes. If your BMI is high we recommend lifestyle changes with diet and activity to lower your number. Conversely, if your BMI is too low we recommend increasing your calories to help achieve a healthier weight. BMI 18.5 - 24.9 (Healthy) BMI 25 - 29.9 (Considered Overweight) BMI 30 - 39.9 (Considered Obese) BMI over 40.0 (Considered Extremely Obese) If your BMI is in the Healthy range, keep up the good work! If your BMI is too high, start lifestyle changes such as increasing activity and eating a healthy diet with fewer calories. Avoid foods high in saturated fats and added sugars. Do eat fruits, vegetables, whole grains, fat-free or low-fat dairy products, lean meats, poultry, fish, beans, eggs, and nuts. Your weight today is: 299 lbs. Your BMI today is: 38.4 ihelms Not available 10/08/2019 13:08:38 Reason for Referral None Reported. Results Created Date Observation Date Name Description Value Unit Range Abnormal Flag Note LastModifiedBy Organization Detail LastModifiedTime 10/11/19 20 10/08/2019 XR, toe(s ) No observ ation record ed. [facility] [address], [place], [address], 10/11/2019 19:00:50 Result Notes None recorded. Problems Name Problem SNOMED Code Status Onset Date Resolution Date Notes Provider Name and Address Organization Details Recorded Time Non-smoke r 7204577 Active Seema Romero, IRWIN [address],[facility], [place], [address] , [facility] 0 12:55:41 Body mass index 30+ - obesity 652171265 Active Seema Romero NP [address],[facility], [place], [address] , [facility] 0 12:55:51 Problem Notes None recorded. Medical Equipment None Reported. Allergies No known drug allergies Medications Name Sig Start Date Stop Date Status Note LastModified by Organization Details LastModified Time prednisone 10 mg tablets in a dose pack Take as directed active Not Available Not Available Not Avai lable cephalexin 500 mg capsule Take 1 capsule 3 times a day by oral route for 10 days. active Not Available Not Available Not Avai lable Vitals Date Recorded Body temperature Body weight Body mass index (BMI) Body height Heart rate Oxygen saturation Respiratory rate Systolic And Diastolic Provider Name and Address Organization Details Last Updated DateTime 0 98.1 [degF] 664110. 84 g 38.4 kg/m2 187.96 cm 100 /min 96 % 22 /min 148/67 mm[Hg] Alcides Lincoln [facility] 0 12:44:34 Social History Question Answer Notes LastModified by Organizat ion Details LastModified Time Tobacco Smoking Status Never Smoker Alcides Lincoln [facility] 10/08/2019 12:46:39 Do You Have An Advance Directive? No [email or web address] Information not available 10/08/2019 How Much Tobacco Do You Chew? None [email or web address] Information not available 10/08/2019 Does The Patient Have Fever OR Cough OR Shortness Of Breath? No [email or web address] Information not available 10/08/2019 In The Last 14 Days, Has The Patient Had Contact With A COVID-19 Positive Patient Or A COVID-19 Suspect Patient Awaiting Test Results? Yes [email or web address] Information not available 10/08/2019 If Pulse Oximetry Was Done: Is The Patient's Sp02 Less Than 93% On Room Air? No [email or web address] Information not available 10/08/2019 Does The Patient Have At Least TWO Of These Symptoms? Diarrhea, Chills, Muscle Pain, Repeated Shaking & Chills, Headache, Sore Throat, Or New Loss Of Taste/Smell No [email or web address] Information not available 10/08/2019 What Was The Date Of Your Most Recent Tobacco Screening? 10/08/2019 [email or web address] Information not available 10/08/2019 Sex: Unknown Functional Status Question Answer Note LastModified by Organizat ion Details LastModified Time Do you or have you ever used smokeless tobacco? Never used smokeless tobacco [email or web address] Information not available 10/08/2019 Do you or have you ever used e-cigarettes or vape? Never used electronic cigarettes [email or web address] Information not available 10/08/2019 Mental Status None recorded. Family History Nothing Reported. Medical History Condition Response Kidney Stones Y Past Encounters Encounter ID Performer Location Encounter Start Date Encounter Closed Date Diagnosis/Indication Diagnosis SNOMED-CT Code Diagnosis ICD10 Code Diagnosis IMO Codes Diagnosis Note [id number] Jacoby Alfredo MD [facility] [address] [address] 10/08/2019 12:15:19 10/08/2019 13:46:13 Pain of toe of left foot 5273527603 22824 M79.675 ?defect at distal tip - doubt fracture but will send for over-readi ng. Body mass index 30+ - obesity 646902408 Z68.38 Cellulitis of toe of left foot 6781648176 6756951 L03.032 Instructed to let nail grow out longer as he is clipping his toenails too short. Gout 09046783 M10.9 Health Concerns Section Related Observation LastModified by Organization Detai ls LastModified Time None Recorded Concern Status LastModified by Organization Details LastModified Time None Recorded Advance Directives Directive N: Payers Insurance Date Sequence Insurance Name Policy Number Policy Heller Covered Member ID Heller Member ID Guarantor Name 10/08/2019 1 [facility] [id number] Osmar Perry [id number] Osmar Perry Notes Date Note Type Note Provider Name and Address Organization Details Recorded Time 10/08/2019 text/html ROS as noted in the HPI 38 y.o. male with pain in the left great toe for several days. His aunt who is an EMT thought it looked infected. He also recalls stubbing the toe several days ago. No past history of gout. Seema Romero, IRWIN [address],[facility], [place], [address], [facility] 10/08/2019 13:22:14
--- OUTSIDE RECORDS SUMMARY | 2025-02-24 20:27 | XMS_ITS | Clinical Summary ---
Author Organization [facility] Address [address] [place] [address] Phone Care Team Providers Care Body Wirer Name Role Phone Sasha Mckeon MD Primary Care Provider [phone] Allergies No known active allergies Medications metFORMIN (GLUCOPHAGE) 500 MG tablet Take 500 mg by mouth 2 (two) times a day. 06/07/2021 Active ONETOUCH DELICA LANCETS 30 gauge Misc TEST 2 TIMES WEEKLY 05/29/2021 Active ONETOUCH ULTRA TEST Strp strips USE TWICE A WEEK 05/03/2021 Active Active Problems No known active problems Social History Tobacco Use Types Packs/Day Years Used Date Smoking Tobacco: Never Smokeless Tobacco: Never Tobacco Cessation:Counseling Given: Not Answered Alcohol Use Standard Drinks/Week Comments No 0 (1 standard drink = 0.6 oz pur e alcohol) Education Answer Date Recorded Are you interested in more education? Not on zita e 08/02/2022 Are you concerned about learning? Not on file 08/02/2022 No 08/02/2022 No 08/02/2022 Digital Access Answer Date Recorded No 08/31/2022 No 08/31/2022 Reliable internet access at home? Not on file 08/31/2022 Device with a working camera? Not on file Sex and Gender Information Value Date Recorded Sex Assigned at Male 03/05/2018 9:06 AM EST Legal Sex Male 8:57 AM EST Gender Identity Male 03/05/2018 9:06 AM EST Sexual Orientation Straight 03/05/2018 9: 06 AM EST Last Filed Vital Signs Vital Sign Reading Time Taken Comments Blood Pressure 130/80 08/03/2024 2:20 PM EDT Pulse 84 08/03/2024 2:20 PM EDT Temperature 36.6 C (97.8 F) 07/03/2023 10:02 AM EDT Respiratory Rate 18 07/03/2023 10:02 AM EDT Oxygen Saturation 97% 08/03/2024 2:20 PM EDT Inhaled Oxygen Concentration - - Weight 120.2 kg (265 lb) 08/03/2024 2:20 PM EDT Height 190.5 cm (6' 3 ) 08/03/2024 2:20 PM EDT Body Mass Index 33.12 08/03/2024 2:20 PM EDT Plan of Treatment Health Maintenance Due Date Last Done Comments LIPID PANEL 1979 DEPRESSION SCREENING 1991 HEPATITIS C SCREENING 10/13/1997 HIV ONE-TIME SCREENING (18-65 YEARS) 10/13/1997 SCREENING FOR DIABETES 10/13/2014 CREATININE LEVEL 03/05/2019 03/05/2018 COLOGUARD 10/13/2024 COLONOSCOPY 10/13/2024 COLORECTAL CANCER SCREENING 10/13/2024 FIT TEST 10/13/2024 FOBT 10/13/2024 SIGMOIDOSCOPY 10/13/2024 VIRTUAL COLONOSCOPY 10/13/2024 INFLUENZA VACCINE (#1) 2024 04/30/2024, 2021 COVID-19 VACCINE (2024- season) 2024 01/19/2022, 02/02/2021, 07/06/2020, Additional history exists Adult Td,Tdap Booster 04/30/2034 04/30/2024 SMOKING STATUS SCREENING (Once After 26 Yrs) Completed 08/03/2024 HEPATITIS A VACCINES Aged Out No long er eligible based on patient's age to complete this topic HIB VACCINES Aged Out No longer eligi ble based on patient's age to complete this topic MENINGOCOCCAL VACCINES (ACWY) Aged Out No longer eligible based on patient's age to complete this topic MENINGOCOCCAL VACCINES (B) Aged Out N o longer eligible based on patient's age to complete this topic PNEUMOCOCCAL VACCINES (0-49 years) Aged Out No longer eligible based on patient's age to complete this topic Medical Devices Not on file Procedures Procedure Name Priority Date/Time Associated Diagnosis Comments BASIC METABOLIC PANEL (BMP) STAT 03/05/2018 9:25 AM EST from Last 3 Months or Most Recently Relevant to Health Maintenance Results * (ABNORMAL) Basic metabolic panel (03/05/2018 9:25 AM EST) SODIUM 143 133 - 146 mmol/L [facility] CHLORIDE 103 96 - 108 mmol/L [facility] POTASSIUM 4.8 3.3 - 5.1 mmol/L [facility] CO2 25 21 - 35 mmol/L [facility] BUN 11 6 - 19 mg/dL [facility] CREATININE 1.50 0.5 - 1.5 mg/dL [facility] GLUCOSE 156(H) 70 - 99 mg/dL [facility] CALCIUM 10.2 8.4 - 10.3 mg/dL [facility] EGFR 58(L) >59 mL/min/1.7 3m2 [facility] Comment:If patient is black, multiply result by 1.159. Estimated glomerular filtration rate calculated using the CKD-EPI equation. ANION GAP 20 10 - 20 mmol/L [facility] Blood 03/05/2018 9:25 AM EST 03/05/2018 9:31 AM EST us Óscar RAY LAB BLOOD BKR ORDERABLES Final R esult Performing Organization Address City/State/[facility] Co de Phone Number [address] [address] from Last 3 Months or Most Recently Relevant to Health Maintenance Insurance [facility] Member Subscriber Plan / Payer (Ef fective 2017-Present) Name:Petar Perry Relation to Subscriber:Self Name:Petar Perry Payer ID:[id number] (NAIC) Type:HMO Address: [facility] [id number], [place] [facility] [employer]MS[employer] Care Teams Body Wirer Relationship Specialty Start Date End Date Sasha Mckeon MD [address] [place] [address] Drive [address] [place] [address] PCP - General Internal Medicine 03/05/18 Additional Source Comments The information contained in this document represents components of the legal health record. It is not the complete legal health record.[facility]
== END 2025-02-24 16:00 | disposition home or self-care (01) ==
LOC: HO.HMCH 15:04
PROVIDERS: PCP Internal Medicine; Visit Provider Internal Medicine
DX: E11.9 Type 2 diabetes mellitus without complications (principal)

== ENCOUNTER → 2025-02-24 15:03 | Outpatient (BNVA) | payer BC, SELFPAY | PROVIDERS: PCP Internal Medicine; Visit Provider Internal Medicine | DX: Z00.00 Encounter for general adult medical examination without abnormal findings (principal); I10 Essential (primary) hypertension; E11.9 Type 2 diabetes mellitus without complications; Z79.85 Long-term (current) use of injectable non-insulin antidiabetic drugs; Z79.84 Long term (current) use of oral hypoglycemic drugs | CPT/HCPCS: 83036; 96127 ==